=== PATIENT | female | born 1960 | race Caucasian/White ===

== ENCOUNTER 2017-10-20 06:51 | Emergency (ER) | payer BC ==
[~2017-10-20] VITALS: Ht 167.6 cm; Wt 72.7 kg
[2017-10-20] MEDS ORDERED: ondansetron 4mg rapidly disintigrating tab PO ONE (07:15)
[2017-10-20] MEDS ORDERED: meclizine 12.5mg tablet PO ONE (07:15)
[2017-10-20] MEDS ORDERED: diazepam 5mg tablet PO ONE ×2 (07:15→08:35)
[2017-10-20] MEDS ORDERED: MECL-111 PO (09:36)
[2017-10-20] MEDS ORDERED: ONDA8TAB9 PO (09:36)
[2017-10-20] MEDS ORDERED: DIAZ10TA PO (09:36)
[2017-10-20 10:02] VITALS: BP 94/60
== END 2017-10-20 10:04 | disposition home or self-care (01) ==
LOC: ER 06:52
DX: H81.11 Benign paroxysmal vertigo, right ear (principal); I25.2 Old myocardial infarction; Z90.710 Acquired absence of both cervix and uterus; Z79.899 Other long term (current) drug therapy
CPT/HCPCS: 93005; 99284; J8597

== ENCOUNTER 2019-06-05 05:06 | Emergency (ER) | payer BC ==
[~2019-06-05] VITALS: Ht 167.6 cm; Wt 72.0 kg
[~2019-06-05 05:06] MED LIST: DIAZ10TA PO; MECL-159 PO; ONDA8TAB9 PO
[2019-06-05] MEDS ORDERED: HYDROcodone/acetaminophen 5mg/325mg tablet PO ONE (06:50)
[2019-06-05] MEDS ORDERED: HYDR-3965 PO (07:42)
[2019-06-05 07:57] VITALS: BP 114/59
== END 2019-06-05 07:59 | disposition home or self-care (01) ==
LOC: ER 05:06
DX: M25.561 Pain in right knee (principal); I25.2 Old myocardial infarction; G89.29 Other chronic pain; F32.9 Major depressive disorder, single episode, unspecified; Z90.710 Acquired absence of both cervix and uterus; Z98.890 Other specified postprocedural states; Z79.899 Other long term (current) drug therapy; Z79.01 Long term (current) use of anticoagulants
CPT/HCPCS: 73590; 99283

== ENCOUNTER 2024-12-28 15:37 | Emergency (ER) | payer BC, OTHER ==
[~2024-12-28] VITALS: Ht 167.6 cm; Wt 76.8 kg
[~2024-12-28 15:37] MED LIST changes: +DIAZ-546 PO; -DIAZ10TA PO; -MECL-159 PO; +MECL-302 PO
[2024-12-28 15:53] VITALS: BP 114/89; PULSE 76; O2SAT 96
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
[2024-12-28] MEDS ORDERED: CYCL-1 PO (16:58)
[2024-12-28] MEDS ORDERED: HYDR-3965 PO (16:58)
[2024-12-28 17:09] VITALS: RESP 16
[2024-12-28] MEDS: HYDROcodone/acetaminophen 5mg/325mg tablet PO ONE (17:09)
[2024-12-28 17:13] VITALS: TEMP 98.2
== END 2024-12-28 17:17 | disposition home or self-care (01) ==
LOC: ER 15:38
DX: S19.9XXA Unspecified injury of neck, initial encounter (principal); I25.2 Old myocardial infarction; F32.A Depression, unspecified; Z90.710 Acquired absence of both cervix and uterus; V89.2XXA Person injured in unspecified motor-vehicle accident, traffic, initial encounter; Y93.89 Activity, other specified; Y92.89 Other specified places as the place of occurrence of the external cause; Y99.8 Other external cause status
CPT/HCPCS: 99283